=== PATIENT | female | born 1950 | race Caucasian/White ===

== ENCOUNTER 2016-12-28 09:33 | Outpatient (CLI) | payer OTHER ==
[~2016-12-28] VITALS: Ht 157.5 cm; Wt 76.3 kg
[~2016-12-28 09:33] MED LIST: MULT-974 PO
--- OUTSIDE RECORDS SUMMARY | 2016-12-28 09:36 | XMS REPORT | Continuity of Care Document ---
Author Author Interface Organization Interface Address Unknown Phone Unavailable Problems Problem Status Onset Date Classification Date Reported Comments Source Medications Medication Details Route Status Patient Instructions Ordering Provider Order Date Source Allergies, Adverse Reactions, Alerts Substance Category Reaction Severity Reaction type Status Date Reported Comments Source Immunizations Immunization Date Given Site Status Last Updated Comments Source Results Order Name Results Value Reference Range Date Interpretation Comments Source Vital Signs Vital Sign Value Date Comments Source Encounters Location Location Details Encounter Type Encounter Number Reason For Visit Attending Provider ADM Date DC Date Status Source Procedures Procedure Code Date Perfomer Comments Source
[2016-12-28 09:46] VITALS: BP 116/73
== END 2016-12-28 10:14 | disposition home or self-care (01) ==
LOC: PREOP 09:33
PROVIDERS: ATTEND Podiatrist Foot Surgery
DX: Z01.818 Encounter for other preprocedural examination (principal); Z11.2 Encounter for screening for other bacterial diseases; M20.12 Hallux valgus (acquired), left foot
CPT/HCPCS: 87081

== ENCOUNTER 2017-01-01 06:07 | Day surgery (SDC) | payer OTHER ==
[~2017-01-01] VITALS: Ht 157.5 cm; Wt 76.3 kg
[2017-01-01 06:25] VITALS: BP 113/67
[2017-01-01] MEDS ORDERED: ceFAZolin 1,000 MG (ANCEF) VIAL ONE (06:42)
[2017-01-01] MEDS ORDERED: NS (IVPB) 50 ML ONE (06:42)
[2017-01-01] MEDS ORDERED: FAMOTIDINE 20MG/2ML IV (PEPCID) ONE (06:42)
[2017-01-01] MEDS ORDERED: LACTATED RINGERS 1,000 ML IV ONE ×2 (06:45→07:12)
[2017-01-01] MEDS ORDERED: LACTATED RINGERS 1,000 ML IV PRN (06:54)
[2017-01-01] MEDS ORDERED: ceFAZolin 1 GM/NS 50 ML IVPB IV ONE ×2 (07:00)
[2017-01-01] MEDS ORDERED: FAMOTIDINE 20MG/2ML IV (PEPCID) IV ONE (07:00)
[2017-01-01] MEDS ORDERED: LIDOCAINE PF 2% 10 ML (XYLOCAINE) AMP ONE (07:12)
[2017-01-01] MEDS ORDERED: MIDAZOLAM 2 MG/2 ML (VERSED) VIAL ONE (07:12)
[2017-01-01] MEDS ORDERED: fentaNYL INJECTION 100 MCG/2 ML AMP ONE (07:12)
[2017-01-01] MEDS ORDERED: proPOfol 200 MG/20 ML (DIPRIVAN) VIAL IV ONE (07:12)
[2017-01-01] MEDS ORDERED: ONDANSETRON 4 MG/2 ML (SDV) Z0FRAN ONE (07:14)
--- NOTE | 2017-01-01 07:29 | Progress Note-Pre Operative ---
Pre-Operative Progress Note H&P Reviewed The H&P was reviewed, patient examined and no changes noted. Date H&P Reviewed: Jan 01, 2017 Time H&P Reviewed: 07:30 Pre-Operative Diagnosis: hallux valgus left foot LISANDRA ADAME DPM Jan 01, 2017 7:29 am
[2017-01-01] MEDS ORDERED: DEXAMETHASONE PF 10 MG/ML (DECADRON) VIAL IJ ONE (07:30)
[2017-01-01] MEDS ORDERED: BUPIVACAINE 0.5% 30 ML (SENSORCAINE) VIAL INJ ONE (07:30)
[2017-01-01] MEDS ORDERED: MEPIVACAINE (CARBOCAINE) 2% 20 ML VIAL INJ ONE (07:30)
[2017-01-01] MEDS ORDERED: MEPIVACAINE (CARBOCAINE) 2% 50 ML VIAL INJ ONE (07:45)
[2017-01-01] MEDS ORDERED: LACTATED RINGERS 1,000 ML IV SCH (08:42)
[2017-01-01] MEDS ORDERED: HYDROcodone/APAP 5 MG/325 MG (LORTAB) TAB PO PRN (08:45)
[2017-01-01] MEDS ORDERED: PROMETHAZINE INJ 25 MG/ML (PHENERGAN) AMP IV PRN (08:45)
[2017-01-01] MEDS ORDERED: morphine INJ 10 MG/ML 1ML (SYR OR VIAL) IV PRN (08:45)
[2017-01-01] MEDS ORDERED: ONDANSETRON 4 MG/2 ML (SDV) Z0FRAN IV PRN (08:45)
[2017-01-01] MEDS ORDERED: fentaNYL INJECTION 100 MCG/2 ML AMP IV PRN (08:45)
--- NOTE | 2017-01-01 08:50 | Progress Note-Post Operative ---
Post-Operative Progess Note Pre-Operative Diagnosis hallux valgus left foot Post-Operative Diagnosis same Post-Op Procedure Note Date of Procedure: Jan 01, 2017 Name of Procedure: modifired mandujano bunionectomy left foot Procedure Note/Findings as usual Anesthesia Type regional with assist Estimated blood loss (mL): min Specimen(s) collected LISANDRA Hicks DPM Jan 01, 2017 8:50 am
--- NOTE | 2017-01-01 08:50 | Discharge Instructions ---
Discharge Instructions Discharge Medications New, Converted or Re-Newed RX: RX Given to Pt/Family Patient Instructions Patient Instructions 1. Follow up in office in 2 weeks. 2. Diet as tolerated. 3. Activity as tolerated. Activity & Diet Activity as Tolerated: Yes LISANDRA ADAME DPM Jan 01, 2017 8:50 am
[2017-01-01 09:20] VITALS: BP 112/68
[2017-01-01] MEDS ORDERED: HYDR-3730 PO (09:28)
[2017-01-01 09:50] VITALS: BP 108/67
--- NOTE | 2017-01-01 10:00 | OPERATIVE REPORT ---
PROCEDURE PHYSICIAN: LISANDRA ADAME DATE OF PROCEDURE: 01/01/2017 PREOPERATIVE DIAGNOSES: Hallux valgus, left foot. POSTOPERATIVE DIAGNOSES: Hallux valgus, left foot. NAME OF OPERATION: Modified De [place] Santos bunionectomy, left foot. DESCRIPTION OF OPERATION: With the patient in the supine position, having been effected by regional anesthetic, utilizing 9 mL of a 50:50 mixture of 0.5% Marcaine plain and 1% Carbocaine plain with anesthesia assist, sterile prep and drape were performed and a Kwadwo bandage was applied at the level of the mid tarsus. A 7 cm curvilinear incision was made over the dorsal aspect of the first metatarsal, medial to the HL tendon, extended onto the first digit. This incision was deepened with sharp and blunt dissection. Vital structures identified and retracted. Superficial veins were cauterized. Dissection was carried deep to the first interspace and the tendon of the extensor hallucis brevis was tenotomized at the joint level. The capsule of the first MP was incised in a linear fashion, medial to the HL tendon, capsule and periosteum were freed from the dorsal, medial and lateral aspect of the first metatarsal head and proximal phalangeal base. A well developed medial exostosis was noted. This was resected in toto with remaining bone surface rasped smooth as was a dorsal exostosis of the first metatarsal head. The transverse head of the abductor was also tenotomized. The first metatarsal head was remodeled to normal bony contours. The area was flushed with copious amounts of saline and inspected for any other anatomical abnormalities; none were noted. The capsule was closed with continuous lock suture of 4-0 Vicryl. Superficial fascia closed with continuous suture of 4-0 Vicryl and the skin was reapproximated with Dermabond. Decadron was introduced into the operative site to control postoperative pain and swelling. Tourniquet was released. Blood flow return to the digits was within normal limits. Adaptic and a sterile corrective compressive wet-to-dry Betadine dressing were applied and carried above the level of the ankle and covered with circular Coban. The patient tolerated the procedure well with minimal blood loss. She left the OR to PAR in apparent good condition. FOLLOW-UP: He is to be seen in the office in 2 weeks for appropriate follow-up care. Job ID: [id number] Dictated Date: 01/01/2017 08:53:42 Coverstitch Machine Operator Date: 01/01/2017 09:53:59 / geoffrey
[2017-01-01 10:20] VITALS: BP 112/66
[2017-01-01 10:33] VITALS: BP 112/66
--- NOTE | 2017-01-01 13:16 | Diagnostic Imaging Report ---
Left foot. INDICATION: Postop hallux valgus deformity. FINDINGS: AP and lateral views were obtained. Reportedly, there has been a prior surgical procedure involving the first ray. There does appear to be a smooth osteotomy defect along the medial aspect of the head of first metatarsal. There is also some gas in the soft tissues in this area. There is no fracture or acute bony abnormality identified otherwise. There is no sign of a calcaneal spur. IMPRESSION: There are postoperative changes consistent with a recent osteotomy of the medial aspect of the head of the first metatarsal. There is no acute bony abnormality identified. Dictated by: Dictated on workstation # [id number]
== END 2017-01-01 10:33 | disposition home or self-care (01) ==
LOC: SDC 06:07
PROVIDERS: ATTEND Podiatrist Foot Surgery
DX: M20.12 Hallux valgus (acquired), left foot (principal)
CPT/HCPCS: 73620

== ENCOUNTER → 2017-03-10 | Outpatient (CLI) | payer BC, OTHER ==
[~2017-03-10] MED LIST changes: +HYDR-3730 PO
--- NOTE | 2017-03-10 13:20 | Diagnostic Imaging Report ---
EXAMINATION: Ultrasound of the right wrist joint area. INDICATION: Nodule. FINDINGS: There is a superficial vein measuring 2.6 cm in length demonstrating noncompressibility and hyperechoic content, compatible with a focal area of thrombophlebitis. IMPRESSION: Occluded mildly dilated 2.6 cm segment of superficial vein in the dorsal aspect of the right wrist, suggestive of focal thrombophlebitis. Dictated by: Dictated on workstation # [id number]
== END ==
LOC: RAD 10:55
PROVIDERS: ATTEND Nurse Practitioner Family
DX: I82.611 Acute embolism and thrombosis of superficial veins of right upper extremity (principal)
CPT/HCPCS: 76881

== ENCOUNTER → 2017-03-17 | Outpatient (CLI) | payer BC ==
--- NOTE | 2017-03-18 19:23 | Diagnostic Imaging Report ---
Bilateral screening mammogram The current study was also evaluated with a Computer Aided Detection (CAD) system. Indication: Screening. No current complaints stated on the questionnaire. COMPARISON: 08/27/15. FINDINGS: The breasts are composed of heterogeneously dense parenchyma which may decrease mammographic sensitivity. There are occasional benign-appearing calcifications. Allowing for technique and positional differences, no suspicious change is seen. IMPRESSION: Dense breasts with no definite change. ACR BI-RADS Category 2: Benign findings. Result letter will be mailed to the patient. Note: At least 10% of breast cancer is not imaged by mammography. Dictated by: Dictated on workstation # [id number]
== END ==
LOC: RAD 10:28
PROVIDERS: ATTEND Nurse Practitioner Family
DX: Z12.31 Encounter for screening mammogram for malignant neoplasm of breast (principal)
CPT/HCPCS: 77067

== ENCOUNTER 2017-05-18 10:42 | Outpatient (CLI) | payer BC, MEDICARE ==
[~2017-05-18] VITALS: Ht 157.5 cm; Wt 77.2 kg
[2017-05-18 10:57] VITALS: BP 113/62
== END 2017-05-18 11:19 | disposition home or self-care (01) ==
LOC: PREOP 10:42
PROVIDERS: ATTEND Podiatrist Foot Surgery
DX: Z01.818 Encounter for other preprocedural examination (principal); Z11.2 Encounter for screening for other bacterial diseases; M20.11 Hallux valgus (acquired), right foot
CPT/HCPCS: 87081

== ENCOUNTER 2017-05-21 06:00 | Day surgery (SDC) | payer BC, MEDICARE ==
[~2017-05-21] VITALS: Ht 157.5 cm; Wt 77.2 kg
--- OUTSIDE RECORDS SUMMARY | 2017-05-21 06:11 | XMS REPORT | Continuity of Care Document ---
Author Author [employer] Organization [facility] Address Unknown Phone Unavailable Care Team Providers Care [employer]ry [employer] Aide Name Role Phone [employer] Unavailable Unavailable Problems Medications Allergies, Adverse Reactions, Alerts Immunizations Results Vital Signs Encounters Procedures Plan of Care Social History Assessment and Plan Family History Value Date Source Advance Directives Order Name Results Value Date Source
--- OUTSIDE RECORDS SUMMARY | 2017-05-21 06:12 | XMS REPORT | Continuity of Care Document ---
Author Author [facility] Organization [facility] Address Unknown Phone Unavailable Allergies Active Description Code Type Severity Reaction Onset Reported/Identified Relationship to Patient Clinical Status Yes No Known Drug Allergies [id number] Drug Allergy Unknown N/ A 05/18/2017 Medications Problems Date Dx Coded Attending Type Code Diagnosis Diagnosed By 09/19/2013 DAVIS BUTLER, STEPH Gonzales Ot 562.10 DIVERTICULOSIS COLON (W/O MENT OF HEMORR 09/19/2013 STEPH CANNON MD Ot V12.72 PERSONAL HISTORY OF COLONIC POLYPS 09/19/2013 STEPH CANNON MD Ot V76.51 SCREEN MAL NEOP-COLON 09/21/2013 FARHAN BUTLER, RICO Esteban Ot 327.23 OBSTRUCTIVE SLEEP APNEA (ADULT) ( PEDIATR 09/05/2015 FARHAN BUTLER, RICO Esteban Ot 782.2 09/05/2015 FARHAN BUTLER, RICO Esteban Ot 793.82 09/05/2015 RCIO REAL MD Ot V76.12 09/05/2015 STEPH CANNON MD Ot V72.84 09/05/2015 RICO REAL MD Ot 793.80 09/05/2015 FARHAN BUTLER, RICO M Ot 793.80 09/05/2015 FARHAN BUTLER, RICO M Ot 719.07 09/05/2015 FARHAN BUTLER, RICO M Ot 719.47 09/05/2015 FARHAN BUTLER, RICO M Ot 786.50 09/05/2015 FARHAN BUTLER, RICO M Ot 790.99 09/05/2015 ELAINE BUTLER, KAL Ansari Ot R92.8 09/26/2015 RICO REAL MD Ot 782.2 09/26/2015 RICO REAL MD M Ot 793.82 09/26/2015 RICO REAL MD Ot V76.12 09/26/2015 STEPH CANNON MD Ot V72.84 09/26/2015 RICO REAL MD Ot 793.80 09/26/2015 RICO REAL MD Ot 793.80 09/26/2015 RICO REAL MD Ot 719.07 09/26/2015 RICO REAL MD Ot 719.47 09/26/2015 RICO REAL MD Ot 786.50 09/26/2015 RICO REAL MD Ot 790.99 09/26/2015 KAL HENRY MD Ot R92.8 09/26/2015 KAL HENRY MD Ot M25.512 10/10/2015 KAL HENRY MD Ot M25.512 10/28/2015 TONE DO, ABHAY F Ot M25.512 01/31/2016 TONE DO, ABHAY F Ot M54.12 01/31/2016 TONE DO, BAHAY F Ot M54.12 03/18/2016 TONE DO, ABHAY F Ot M54.12 RADICULOPATHY, CERVICAL REGION 12/28/2016 RICO REAL MD Ot 782.2 LOCAL SUPRFICIAL SWELLNG 12/28/2016 RICO REAL MD Ot 793.82 INCONCLUSIVE MAMMOGRAM 12/28/2016 RICO REAL MD Ot V76.12 OTH SCREEN MAMMO-MALIGN NEOPLASM OF GABRIELLA 12/28/2016 DAVIS BUTLER, STEPH Gonzales Ot V72.84 EXAM PRE-OPERATIVE NOS 12/28/2016 RICO REAL MD Ot 793.80 UNSPEC ABNORMAL MAMMOGRAM 12/28/2016 RICO REAL MD Ot 793.80 UNSPEC ABNORMAL MAMMOGRAM 12/28/2016 RICO REAL MD Ot 719.07 JOINT EFFUSION-ANKLE 12/28/2016 RICO REAL MD Ot 719.47 JOINT PAIN-ANKLE 12/28/2016 RICO REAL MD Ot 786.50 CHEST PAIN NOS 12/28/2016 RICO REAL MD Ot 790.99 BLOOD EXAM - OTH NONSPECIFIC FINDINGS 12/28/2016 KAL HENRY MD Ot R92.8 OTH ABN AND INCONCLUSIVE FINDINGS ON DX 12/28/2016 KAL HENRY MD Ot M25.512 PAIN IN LEFT SHOULDER 12/28/2016 TONE DO, ABHAY Franklin Ot M25.512 PAIN IN LEFT SHOULDER 12/28/2016 TONE , ABHAY Franklin Ot M54.12 RADICULOPATHY, CERVICAL REGION 12/28/2016 ADAME DPM, LISANDRA P Ot M20.12 HALLUX VALGUS (ACQUIRED), LEFT FOOT 12/28/2016 ADAME DPM, LISANDRA P Ot Z01.818 ENCOUNTER FOR OTHER PREPROCEDURAL EXAMIN 12/28/2016 ADAME DPM, LISANDRA P Ot Z11.2 ENCOUNTER FOR SCREENING FOR OTHER BACTER 12/29/2016 ADAME DPM, LSIANDRA P Ot M20.12 HALLUX VALGUS (ACQUIRED), LEFT FOOT 12/29/2016 ADAME DPM, LISANDRA P Ot Z01.818 ENCOUNTER FOR OTHER PREPROCEDURAL EXAMIN 12/29/2016 ADAME DPM, LISANDRA P Ot Z11.2 ENCOUNTER FOR SCREENING FOR OTHER BACTER 01/01/2017 ADAME DPM, LISANDRA P Ot M20.12 HALLUX VALGUS (ACQUIRED), LEFT FOOT 01/04/2017 ADAME DPM, LISANDRA P Ot M20.12 HALLUX VALGUS (ACQUIRED), LEFT FOOT 01/13/2017 ADAME DPM, LISANDRA P Ot M20.12 HALLUX VALGUS (ACQUIRED), LEFT FOOT 03/11/2017 MONSE HERNANDEZ APRN Ot I82.611 ACUTE EMBOLISM AND THOMBOS OF SUPERFIC V 03/23/2017 MONSE HERNANDEZ APRN Ot Z12.31 ENCNTR SCREEN MAMMOGRAM FOR MALIGNANT NE 03/25/2017 MONSE HERNANDEZ LANDSCAPE CREW MEMBER Ot I82.611 ACUTE EMBOLISM AND THOMBOS OF SUPERFIC V 04/06/2017 MONSE HERNANDEZ APRN Ot Z12.31 ENCNTR SCREEN MAMMOGRAM FOR MALIGNANT NE 05/14/2017 RICO REAL MD Ot 782.2 LOCAL SUPRFICIAL SWELLNG 05/14/2017 RICO REAL MD Ot 793.82 INCONCLUSIVE MAMMOGRAM 05/14/2017 RICO REAL MD Ot V76.12 OT SCREEN MAMMO-MALIGN NEOPLASM OF GABRIELLA 05/14/2017 DAVIS BUTLER, STEPH Gonzales Ot V72.84 EXAM PRE-OPERATIVE NOS 05/14/2017 RICO REAL MD Ot 793.80 UNSPEC ABNORMAL MAMMOGRAM 05/14/2017 RICO REAL MD Ot 793.80 UNSPEC ABNORMAL MAMMOGRAM 05/14/2017 RICO REAL MD Ot 719.07 JOINT EFFUSION-ANKLE 05/14/2017 RICO REAL MD Ot 719.47 JOINT PAIN-ANKLE 05/14/2017 RICO REAL MD Ot 786.50 CHEST PAIN NOS 05/14/2017 RICO REAL MD Ot 790.99 BLOOD EXAM - OTH NONSPECIFIC FINDINGS 05/14/2017 KAL HENRY MD Ot R92.8 OTH ABN AND INCONCLUSIVE FINDINGS ON DX 05/14/2017 KAL HENRY MD Ot M25.512 PAIN IN LEFT SHOULDER 05/14/2017 TONE DO ABHAY F Ot M25.512 PAIN IN LEFT SHOULDER 05/14/2017 TONE DO, ABHAY F Ot M54.12 RADICULOPATHY, CERVICAL REGION 05/14/2017 MONSE HERNANDEZ LANDSCAPE CREW MEMBER Ot I82.611 ACUTE EMBOLISM AND THOMBOS OF SUPERFIC V 05/14/2017 MONSE HERNANDEZ LANDSCAPE CREW MEMBER Ot Z12.31 ENCNTR SCREEN MAMMOGRAM FOR MALIGNANT NE 05/17/2017 RICO REAL MD Ot 782.2 LOCAL SUPRFICIAL SWELLNG 05/17/2017 RICO REAL MD Ot 793.82 INCONCLUSIVE MAMMOGRAM 05/17/2017 RICO REAL MD Ot V76.12 OTH SCREEN MAMMO-MALIGN NEOPLASM OF GABRIELLA 05/17/2017 DAVIS BUTLER, STEPH Gonzales Ot V72.84 EXAM PRE-OPERATIVE NOS 05/17/2017 RICO REAL MD Ot 793.80 UNSPEC ABNORMAL MAMMOGRAM 05/17/2017 RICO REAL MD Ot 793.80 UNSPEC ABNORMAL MAMMOGRAM 05/17/2017 RICO REAL MD Ot 719.07 JOINT EFFUSION-ANKLE 05/17/2017 RICO REAL MD Ot 719.47 JOINT PAIN-ANKLE 05/17/2017 RICO REAL MD Ot 786.50 CHEST PAIN NOS 05/17/2017 RICO REAL MD Ot 790.99 BLOOD EXAM - OTH NONSPECIFIC FINDINGS 05/17/2017 KAL HENRY MD, Ot R92.8 OTH ABN AND INCONCLUSIVE FINDINGS ON DX 05/17/2017 KAL HENRY MD Ot M25.512 PAIN IN LEFT SHOULDER 05/17/2017 ABHAY WAYNE DO Ot M25.512 PAIN IN LEFT SHOULDER 05/17/2017 ABHAY WAYNE DO Ot M54.12 RADICULOPATHY, CERVICAL REGION 05/17/2017 MONSE HERNANDEZ LANDSCAPE CREW MEMBER Ot I82.611 ACUTE EMBOLISM AND THOMBOS OF SUPERFIC V 05/17/2017 MONSE HERNANDEZ LANDSCAPE CREW MEMBER Ot Z12.31 ENCNTR SCREEN MAMMOGRAM FOR MALIGNANT NE Procedures Results Test Result Range Methicillin resistant Staphylococcus aureus (MRSA) screening culture - 10:00 Methicillin resistant Staphylococcus aureus (MRSA) screening culture NEG NRG Methicillin resistant Staphylococcus aureus (MRSA) screening culture - 10:50 Methicillin resistant Staphylococcus aureus (MRSA) screening culture NEG NRG Encounters ACCT No. Visit Date/Time Discharge Status Pt. Type Provider Facility Loc./Unit Complaint [id number] 05/18/2017 10:42:00 2016 11:19:00 DIS Outpatient LISANDRA ADAME DPM [facility] PREOP BUNIONECTOMY RIGHT FOOT [id number] 01/01/2017 06:07:00 2016 10:33:00 DIS Outpatient LISANDRA ADAME DPM [facility] HALLUX VALGUS DEFORMITY LEFT [id number] 12/28/2016 09:33:00 2016 10:14:00 DIS Outpatient LISANDRA ADAME DPM [facility] PREOP LEFT BUNION SURGERY [id number] 09/26/2015 13:25:00 2014 23:59:59 CLS Outpatient ABHAY WAYNE DO [facility] RAD LEFT SHOULDER PAIN [id number] 09/05/2015 14:32:00 2014 23:59:59 CLS Outpatient KAL HENRY MD [facility] RAD LT SHOULDER PAIN, IMPINGEMENT SYNDROME [id number] 08/27/2015 08:21:00 2014 23:59:59 CLS Outpatient KAL HENRY MD [facility] RAD ABNORMAL MAMMO [id number] 02/20/2015 11:09:00 2014 23:59:59 CLS Outpatient RICO REAL MD [facility] RAD CHEST PAIN POSITIVE D TIMER [id number] 09/04/2014 13:50:00 2013 23:59:59 CLS Outpatient RICO REAL MD [facility] RAD SIX MONTH F/U ABN MAMMO [id number] 08/22/2014 16:59:00 2013 23:59:59 CLS Outpatient RICO REAL MD [facility] RAD PAIN AND SWELLING RT ANKLE [id number] 09/28/2013 07:39:00 2012 23:59:59 CLS Outpatient RICO REAL MD [facility] RAD ABNORMAL MAMMO [id number] 09/20/2013 19:59:00 2012 06:41:00 DIS Outpatient RICO REAL MD [facility] SLEEP SARATH [id number] 09/19/2013 07:22:00 2012 10:56:00 DIS [facility] [id number] 09/15/2013 10:37:00 2012 23:59:59 CLS Outpatient RICO REAL MD [facility] RAD SCREENING, [id number] 09/13/2013 07:13:00 2012 23:59:59 CLS Outpatient STEPH CANNON MD [facility] PREOP SCREENING [id number] 08/30/2013 10:33:00 2012 23:59:59 CLS Outpatient RICO REAL MD [facility] LAB AGGREGATION SKIN [id number] 05/21/2017 08:00:00 PEN Preadmit LISANDRA ADAME DPM [facility] HALLUX VALGUS RIGHT FOOT [id number] 03/17/2017 10:28:00 ACT Outpatient MONSE HERNANDEZ APRN [facility] RAD SCREENING [id number] 03/10/2017 10:55:00 ACT Outpatient MONSE HERNANDEZ APRN [facility] RAD RIGHT WRIST NODULE [id number] 01/30/2016 12:47:00 ACT Outpatient ABHAY WAYNE DO [facility] RAD CERVICAL RADICULOPATHY [id number] 09/05/2015 14:31:00 Document Registration [id number] 09/05/2015 14:31:00 Document Registration
[2017-05-21] MEDS ORDERED: ceFAZolin 1,000 MG (ANCEF) VIAL ONE (06:28)
[2017-05-21] MEDS ORDERED: NS (IVPB) 50 ML ONE (06:28)
[2017-05-21 06:40] VITALS: BP 109/63
[2017-05-21] MEDS ORDERED: LACTATED RINGERS 1,000 ML IV PRN (07:09)
[2017-05-21] MEDS ORDERED: CATHETER FLUSH 10 ML SYR IV PRN (07:15)
[2017-05-21] MEDS ORDERED: ceFAZolin 1 GM/NS 50 ML IVPB IV ONE ×2 (07:15)
[2017-05-21] MEDS ORDERED: MEPIVACAINE (CARBOCAINE) 2% 50 ML VIAL ONE (07:17)
[2017-05-21] MEDS ORDERED: BUPIVACAINE 0.5% 30 ML (SENSORCAINE) VIAL ONE (07:17)
[2017-05-21] MEDS ORDERED: MIDAZOLAM 2 MG/2 ML (VERSED) VIAL ONE (07:22)
[2017-05-21] MEDS ORDERED: fentaNYL INJECTION 100 MCG/2 ML AMP ONE (07:22)
--- NOTE | 2017-05-21 07:30 | Progress Note-Pre Operative ---
Pre-Operative Progress Note H&P Reviewed The H&P was reviewed, patient examined and no changes noted. Date Seen by Provider: May 21, 2017 Time Seen by Provider: 07:40 Date H&P Reviewed: May 21, 2017 Time H&P Reviewed: 07:41 Pre-Operative Diagnosis: hallux valgus right foot/ LISANDRA ADAME DPM May 21, 2017 7:30 am
[2017-05-21] MEDS ORDERED: DEXAMETHASONE PF 10 MG/ML (DECADRON) VIAL ONE ×2 (08:54→09:15)
[2017-05-21] MEDS ORDERED: ONDANSETRON 4 MG/2 ML (SDV) Z0FRAN ONE (09:15)
[2017-05-21] MEDS ORDERED: LACTATED RINGERS 0 ML IV ONE (09:15)
[2017-05-21] MEDS ORDERED: LIDOCAINE PF 2% 5 ML (XYLOCAINE) VIAL ONE (09:15)
[2017-05-21] MEDS ORDERED: SEVOFLURANE (ULTANE) 15 ML INHAL SOLN ONE (09:15)
[2017-05-21] MEDS ORDERED: proPOfol 200 MG/20 ML (DIPRIVAN) VIAL IV ONE (09:15)
[2017-05-21] MEDS ORDERED: LACTATED RINGERS 1,000 ML IV SCH (09:50)
--- NOTE | 2017-05-21 09:50 | Progress Note-Post Operative ---
Post-Operative Progess Note Surgeon (s)/Formula Maker (s) Surgeon LISANDRA ADAME DPM Formula Maker: NONE Pre-Operative Diagnosis hallux valgus right foot/ Post-Operative Diagnosis SAME Procedure & Operative Findings Date of Procedure 05/21/17 Procedure Performed/Findings MODIFIED TYRESE BUNIONEDCTOMY RIGHT FOOT Anesthesia Type GENERAL WITH INFILTRATION Estimated Blood Loss Estimated blood loss (mL): MIN Specimens/Packing Specimens Removed NONE LISANDRA ADAME DPM May 21, 2017 9:50 am
[2017-05-21] MEDS ORDERED: HYDROcodone/APAP 5 MG/325 MG (LORTAB) TAB PO PRN (10:00)
[2017-05-21 10:20] VITALS: BP 117/70
--- NOTE | 2017-05-21 10:20 | Diagnostic Imaging Report ---
INDICATION: Bunion, right foot pain. 2 views of the right foot show postop changes from osteotomy and pinning of the head of the first metatarsal. Bones are in good alignment. IMPRESSION: Good alignment of head of the first metatarsal following pinning and osteotomy. Dictated by: Dictated on workstation # [id number]
[2017-05-21 10:50] VITALS: BP 110/55
--- NOTE | 2017-05-24 02:13 | OPERATIVE REPORT ---
PROCEDURE PHYSICIAN: LISANDRA ADAME DATE OF PROCEDURE: 05/21/2017 PREOPERATIVE DIAGNOSIS: Hallux valgus, right foot. POSTOPERATIVE DIAGNOSIS: Hallux valgus, right foot. NAME OF OPERATION: Modified Wilmer bunionectomy with internal fixation, right foot. DESCRIPTION OF OPERATION: With the patient in the supine position, having been effected by general anesthetic, and a local infiltration, utilizing 9 mL of 50:50 mixture of 0.5% Marcaine plain and 1% Carbocaine plain, sterile prep and drape were performed and a Kwadwo bandage was applied above the level of the right ankle. A 9 cm curvilinear incision was made over the dorsal aspect of the first metatarsal medial to the HL tendon extended onto the first digit. This was deepened with sharp and blunt dissection. Vital structures identified and retracted. Dissection was carried deep to the first interspace. The transverse head of the adductor hallucis was tenotomized and the extensor hallucis brevis tendon was also tenotomized. Lateral capsulotomy was performed in the first MPJ. A T shaped capsular incision was then made in the medial aspect of the first MPJ. Capsule and periosteum were freed from the dorsal medial and lateral aspect of the first metatarsal head. A well developed medial exostosis was noted. This was resected in toto with remaining bone surface rasped smooth. An L-shaped osteotomy was also made in the first metatarsal head 1 centimeter proximal to the articular surface with the dorsal arm perpendicular to the weight-bearing surface, the plantar arm parallel to weight-bearing surface. First metatarsal head was transposed laterally and a dorsal wedge was resected from the osteotomy with the apex laterally to afford closure of the proximal articular set angle. The first metatarsal head was transposed laterally and fixated with a smooth 0.056 K wire. This was cut flush with the dorsal cortex. Proximal redundant bone stump was remodeled and smoothed. The area was flushed with copious amounts of saline. The capsule was closed with continuous lock suture of 3-0 Vicryl. The vertical arm of the T-shaped capsular incision was resected slightly to maintain closure and removed redundant capsular tissue. This was also closed with continuous lock suture of 3-0 Vicryl. The area was again flushed with copious amounts of saline and superficial fascia were closed with continuous suture of 4-0 Prolene. The skin was reapproximated with Dermabond. Decadron was introduced into the operative site to control postoperative pain and swelling. Tourniquet was released. Blood flow return to the digits was within normal limits. Adaptic and sterile corrective compressive wet-to-dry Betadine dressing were applied and carried above the level of the right ankle and covered with Coban. The patient tolerated the procedure well with minimal blood loss. She left the OR to PAR in apparent good condition. She is to be seen in the office in 2 weeks for appropriate follow-up care. Job ID: [id number] Dictated Date: 05/21/2017 10:01:34 [employer] Testing Supervisor Date: 05/24/2017 02:04:59 / yolanda
== END 2017-05-21 10:51 | disposition home or self-care (01) ==
LOC: SDC 06:00
PROVIDERS: ATTEND Podiatrist Foot Surgery
DX: M20.11 Hallux valgus (acquired), right foot (principal)
CPT/HCPCS: 73620